=== PATIENT | female | born 1970 | race Caucasian/White ===

== ENCOUNTER 2016-05-16 14:06 | Emergency (ER) | payer BC ==
--- NOTE | ~2016-05-16 | CT4 ---
[facility] A Service of [facility] / [facility] RADIOLOGY TEXT RESULTS PATIENT: JUVE ORTIZ LOCATION: SED : 72 UNIT #: [id number] AGE: [address]: Butch Zapata MD SEX: F ORDER DR: [id number] [place] [id number] E MR#: [id number] Acc #: [id number] NAME: JUVE OTRIZ : 1970 SEX: F STUDY DATE/TIME: 05/16/2016 14:29 UNIT: SED ROOM: STUDY DESCRIPTION: CT Abd and Pelv Wo Cont Attending Physician: Butch Zapata M.D. Ordering Physician: Butch Zapata M.D. Primary Care Physician: Talita Mcneal M.D. MEDICAL IMAGING REPORT This report is preliminary unless electronic signature is present. EXAM CT abdomen and pelvis without contrast INDICATIONS Right flank pain since 10:00 a.m. today. PROCEDURE Unenhanced CT of the abdomen and pelvis COMPARISON 05/06/2013 FINDINGS Included lung bases are clear. Diffuse hepatic steatosis. The spleen adrenal glands, kidneys unremarkable. Previous cholecystectomy. There is a lap band in place probably positioned. There is some mild haziness in the central mesentery with mild thickening of proximal small bowel loops. No evidence for obstruction. Appendix is normal. Tiny nonobstructing calculi in both kidneys. No radiodense ureteral calculus or hydronephrosis. Pelvis without contrast: No pelvic mass or fluid. No aggressive appearing bone lesion. IMPRESSION 1. Mild haziness in the central mesentery with thickening of the adjacent proximal small bowel loops, suspicious for mild enteritis. There is no evidence for obstruction or abscess. 2. Hepatic steatosis. 3. A tiny nonobstructing calculi in both kidneys. No ureteral calculus or hydronephrosis [facility] A Service of [facility] / [facility] RADIOLOGY TEXT RESULTS PATIENT: JUVE ORTIZ LOCATION: SED : 72 UNIT #: [id number] AGE: [address]: Butch Zapata MD SEX: F ORDER DR: Dictated by... Tommy Carey M.D. THIS IS AN ELECTRONICALLY VERIFIED REPORT Tommy Carey M.D. at 05/17/2016 7:19 AM KAILEY/radha TD: 05/16/2016 21:00 JOB #: [id number] MEDICAL IMAGING REPORT Page 1 of 1
[~2016-05-16 14:06] MED LIST: ATIVAN; ATIVAN PO; ATIVAN0.5 MG PO; AZMACORT20 GM INH; BACTRIM DS TABL1 TA1 PO; BACTRIM DS TABL1 TA2 PO; CIPRO PO; DARVOCET-N 1001 TAB PO; DIFLUCAN PO; FLAGYL PO; FLEXERIL10 M1 PO; FLEXERIL10 MG PO; FLOMAX0.4 M1 PO; HCTZ; HIBICLENS118 ML TP; IBUPROFEN800 MG PO; INDERAL LA; KEFLEX500 M1 PO; LISINOPRIL; LOC PO; LORCET HD CAPSU1 CA1 PO; LORTAB 10/500 T1 TAB PO; METFORMIN; MULTI VITAMIN1 EACH PO; NAPROSYN500 MG PO; NORCO 10/325 TA1 TAB PO; OXYCONTIN PO; PERCOCET 7.5-31 EACH PO; PERCOCET7.5; PERCOCET7.5 PO; PHENERGAN PO; PHENERGAN W/CO120 ML PO; PREDNISONE PO; PRILOSEC20 MG PO; PROTONIX PO; REGLAN10 MG PO; TOPAMAX PO; TUMS CALCI300 MG( 75 PO; ULTRAM PO; VICODIN 5/1 TAB 5/50 PO; VOLTAREN50 MG PO; ZITHROMAX PO; ZOFRAN ODT4 MG PO; ZOFRANODT SL
[2016-05-16 14:31] LABS: URINE SOURCE CLEAN CATCH
[2016-05-16 14:34] LABS: URINE APPEARANCE CLEAR; URINE BILIRUBIN NEG (NEG); URINE BLOOD NEG (NEG); URINE COLOR YELLOW; URINE GLUCOSE NEG (NORM); URINE KETONE NEG (NEG); URINE LEUKOCYTE ESTERASE NEG (NEG); URINE NITRATE NEG (NEG); URINE PROTEIN NEG (NEG); URINE SPECIFIC GRAVITY <=1.005 (1.003-1.035); URINE UROBILINOGEN 0.2 MG/DL (NORM)
[2016-05-16 14:36] LABS: BASOPHIL# 0.1 X10e3 (0-0.3); EOSINOPHIL# 0.1 X10e3 (0-0.7); EOSINOPHIL% 2.3 % (0.0-7.0); HEMATOCRIT 41.5 % (35.0-45.0); HEMOGLOBIN 14.4 gm/dL (12.0-16.0); LYMPHOCYTE# 1.9 X10e3 (1.0-3.5); LYMPHOCYTE% 30.4 % (17.0-45.0); MEAN CELL VOLUME 94.1 FL (83-96); MEAN CORPUSCULAR HEMOGLOBIN 32.6 PG (28-34); MEAN CORPUSCULAR HGB CONC 34.7 g/dL (30-36); MONOCYTE# 0.4 X10e3 (0-1.0); MONOCYTE% 6.8 % (3.0-12.0); NEUTROPHIL# 3.7 X10e3 (1.5-7.1); NEUTROPHIL% 59.5 % (40-75); PLATELET COUNT 167 X10e3 (140-420); RED BLOOD COUNT 4.41 X10e (3.90-5.30); RED CELL DISTRIBUTION WIDTH 13.1 % (11.0-15.5); WHITE BLOOD COUNT 6.2 X10e3 (4.0-10.5)
[2016-05-16 14:46] LABS: MICRO INDICATED? NO
[2016-05-16 14:51] LABS: DIFF IND NO
[2016-05-16 14:52] LABS: BILIRUBIN, DIRECT 0.1 mg/dL (0.0-0.2); BILIRUBIN,INDIRECT 0.2 mg/dL (0.0-0.9); BILIRUBIN,TOTAL 0.3 mg/dL (0.2-2.0); BUN/CREATININE RATIO 14.44; CALCIUM SERUM 8.7 mg/dL (8.4-10.2); CREATININE SERUM 0.9 mg/dL (0.6-1.4); GLOM FILT RATE Estimated 77.8 mL/min (>60); POTASSIUM 4.1 mmol/L (3.5-5.1); PROTEIN TOTAL SERUM 6.7 g/dL (6.0-8.3)
== END 2016-05-16 16:30 | disposition home or self-care (01) ==
LOC: SED 14:06
PROVIDERS: Emergency Medicine
DX: R10.11 Right upper quadrant pain (principal); E11.40 Type 2 diabetes mellitus with diabetic neuropathy, unspecified; K21.9 Gastro-esophageal reflux disease without esophagitis; I10 Essential (primary) hypertension; Z87.442 Personal history of urinary calculi; Z90.49 Acquired absence of other specified parts of digestive tract; Z98.890 Other specified postprocedural states
CPT/HCPCS: 36415; 74176; 80048; 80076; 81003; 84703; 85025; 96361; 96374; 96375; 99284; J1170; J2405